=== PATIENT | male | born 1970 | race Caucasian/White ===

== ENCOUNTER 2019-07-13 15:55 | Emergency (ER) | payer BC, OTHER ==
[~2019-07-13] VITALS: Ht 175.3 cm; Wt 90.7 kg
[~2019-07-13 15:55] MED LIST: IBUPROFEN 600600 M1 PO; PREDNISONE 20 M20 MG PO
[2019-07-13 16:32] LABS: ABSOLUTE NEUTROPHILS 13.5 thou/uL (1.4-8.2); BASOPHILS 0.6 % (0.0-2.0); EOSINOPHILS 0.1 % (0.0-3.0); HEMATOCRIT 46.8 % (42.0-52.0); HEMOGLOBIN 16.1 gm/dL (14.0-18.0); LYMPHOCYTES 4.9 % (24.0-44.0); MCH 31.3 pg (26.0-34.0); MCHC 34.5 g/dL (28.0-37.0); MCV 90.8 fL (80.0-100.0); MONOCYTES 6.9 % (1.0-8.0); PLATELET COUNT 241 thou/uL (150-400); POLYS 87.5 % (36.0-66.0); RBC 5.15 mil/uL (4.50-6.00); RDW 13.2 % (10.5-14.5); WBC 15.4 thou/uL (4.0-11.0)
[2019-07-13 16:38] LABS: CALCIUM 9.1 mg/dL (8.5-10.1); CREATININE 1.2 mg/dL (0.7-1.3)
[2019-07-13 16:44] LABS: ALBUMIN 4.3 g/dL (3.4-5.0); TOTAL BILIRUBIN 0.7 mg/dL (0.2-1.0); TOTAL PROTEIN 8.2 g/dL (6.4-8.2)
[2019-07-13] MEDS ORDERED: BACTRIM DS TAB1 EACH PO (20:23)
[2019-07-13] MEDS ORDERED: MEDROLDOSEPACK PO (20:23)
[2019-07-13 20:39] VITALS: BP 118/65
== END 2019-07-13 20:41 | disposition home or self-care (01) ==
LOC: ER 15:55
PROVIDERS: Emergency Medicine
DX: M70.51 Other bursitis of knee, right knee (principal); L03.115 Cellulitis of right lower limb; Z79.899 Other long term (current) drug therapy

== ENCOUNTER 2019-07-19 17:13 | Emergency (ER) | payer BC, OTHER ==
[~2019-07-19] VITALS: Ht 175.3 cm; Wt 90.7 kg
[~2019-07-19 17:13] MED LIST changes: +BACTRIM DS TAB1 EACH PO; +MEDROLDOSEPACK PO
[2019-07-19 18:12] LABS: HEMATOCRIT 50.4 % (42.0-52.0); HEMOGLOBIN 17.4 gm/dL (14.0-18.0); MCH 31.4 pg (26.0-34.0); MCHC 34.6 g/dL (28.0-37.0); MCV 90.8 fL (80.0-100.0); PLATELET COUNT 311 thou/uL (150-400); RBC 5.55 mil/uL (4.50-6.00); RDW 12.8 % (10.5-14.5); WBC 12.8 thou/uL (4.0-11.0)
[2019-07-19 18:20] LABS: CALCIUM 9.3 mg/dL (8.5-10.1); CREATININE 1.3 mg/dL (0.7-1.3)
[2019-07-19 18:46] LABS: ABSOLUTE NEUTROPHILS 9.3 thou/uL (1.4-8.2); PLATELET ESTIMATE NORMAL
[2019-07-19] MEDS ORDERED: MOBIC7.5 MG PO (18:56)
[2019-07-19] MEDS ORDERED: BACTRIM DS TAB1 EACH PO (18:56)
[2019-07-19 19:50] VITALS: BP 115/75
== END 2019-07-19 19:58 | disposition home or self-care (01) ==
LOC: ER 17:13
PROVIDERS: Nurse Practitioner Family
DX: M70.41 Prepatellar bursitis, right knee (principal); Y93.89 Activity, other specified